=== PATIENT | male | born 1985 | race Caucasian/White ===

== ENCOUNTER → 2017-06-10 | Outpatient (CLI) | payer OTHER ==
[~2017-06-10] VITALS: Ht 152.4 cm; Wt 72.6 kg
[~2017-06-10] MED LIST: DIAZEPAM10 MG PO; ZITHROMAX500 MG PO
== END | disposition home or self-care (01) ==
LOC: PPHC 12:13
DX: B34.9 Viral infection, unspecified (principal); Z01.89 Encounter for other specified special examinations

== ENCOUNTER → 2023-05-31 | Emergency (ER) | payer OTHER ==
[~2023-05-31] VITALS: Ht 172.7 cm; Wt 73.5 kg
== END | disposition left against medical advice (07) ==
LOC: ER 06:02
DX: J10.1 Influenza due to other identified influenza virus with other respiratory manifestations (principal); Z20.822 Contact with and (suspected) exposure to COVID-19